=== PATIENT | female | born 1985 | race Caucasian/White ===

== ENCOUNTER 2019-06-24 16:04 | Outpatient (CLI) | payer OTHER, SELFPAY ==
--- NOTE | 2019-06-24 | US_ITS ---
WS: [id number] ULTRASOUND OB COMPLETE TECHNIQUE: Complete ultrasound. CLINICAL INFORMATION: SUPERVISION OF NORMAL IN MULTIGRAVIDA IN SECOND TR COMPARISON: None. FINDINGS: Cervix measures 4.0 cm Single interuterine gestation is identified with breech presentation. Placenta is posterior. Placenta grade 0. Normal amniotic fluid volume. cardiac activity: 133 BPM. AGA: 20 weeks 1 day CHARLIE by ultrasound: Estimated weight: 12 ounces BDP: 4.6 cm = 20w0d HC: 17.7 cm = 20w1d AC: 15.1 cm = 20w2d FEMUR LENGTH: 3.2 cm = 20w2d Anatomic survey: Anatomic survey is normal. Normal stomach. Kidneys and bladder are normal. Normal 3 vessel cord. Norm al 3 vessel cord insertion. Normal 4 chamber heart. Normal spine. Intracranial contents are normal. N ormal posterior fossa and cisterna magna. US/US OB >= 14 weeks fetus [id number] IMPRESSION: 1. Single intrauterine with visualized cardiac activity. AGA 20 week s 1 day with CHARLIE November 10, 2019. 2. Placenta is posterior No evidence of abruption or previa. 3. anatomic survey is normal. 4. Normal amniotic fluid volume.
== END 2019-06-24 16:05 | disposition home or self-care (01) ==
LOC: RADOUTREAD 06-25 11:46
PROVIDERS: Family Provider Family Medicine; Visit Provider Family Medicine
DX: Z34.82 Encounter for supervision of other normal pregnancy, second trimester (principal)

== ENCOUNTER 2019-10-28 20:19 | Inpatient (IN) | payer OTHER, MEDICAID, SELFPAY ==
[2019-10-28] VITALS (19 sets, daily range): BP systolic 0–144; BP diastolic 0–78; PULSE 75–101; RESP 18; TEMP 36.7–36.9; BMI 24.7
[2019-10-28 20:35] LABS: Basophils # 0.1 10^3/uL (0.0-0.1); Basophils % 0.4 %; Eosinophils # 0.2 10^3/uL (0.0-0.8); Eosinophils % 1.3 %; Hematocrit 35.7 % (37.0-47.0); Hemoglobin 11.7 g/dL (11.5-15.3); Lymphocytes # 2.1 10^3/uL (0.8-4.8); Lymphocytes % 14.6 %; Mean Corpuscular HGB Conc 32.8 g/dL (30.0-36.0); Mean Corpuscular Hemoglobin 28.9 pg (28.0-34.0); Mean Corpuscular Volume 88.1 fL (81-99); Mean Platelet Volume 11.1 fL (7.4-10.4); Monocytes # 0.9 10^3/uL (0.2-0.9); Monocytes % 6.1 %; Neutrophils # 10.9 10^3/uL (1.8-7.7); Neutrophils % 76.9 %; Nucleated Red Blood Cells % 0 %; Platelet Count 298 10^3/cmm (130-400); Red Blood Count 4.05 10^6/uL (4.1-5.3); Red Cell Distribution Width 13.2 % (12.1-15.1); White Blood Count 14.2 10^3/uL (4.0-10.0)
[2019-10-28] MEDS: dextrose 5%-lactated ringers 1,000 ML 125 ML IV (21:20)
[2019-10-28] MEDS: oxytocin 30 UNIT/500 ML BAG 600 UNIT IV (21:20)
--- NOTE | 2019-10-28 21:40 | PM.DELIVERY ---
Delivery Note: Date of delivery: October 28, 2019 Pre-Delivery Course: The patient had routine care at [facility]. There were no complications during the . Maternal GBS negative Delivery: This is a 33-year-old at 38 weeks gestation who presented to labor and delivery in active labor. She was already 6 to 7 cm dilated with a bulging bag of water. Artificial rupture of membranes was performed with a copious amount of clear fluid. Shortly thereafter she had a normal spontaneous vaginal delivery of a viable male weight 3155 g 6 pounds 15 ounces. Rupture of membranes was less than 30 minutes prior to delivery. The was born over an intact perineum with bulb suction of the mouth and nares at delivery. The infant was placed on the mother's chest and the cord was clamped and cut. The placenta was delivered grossly intact and normal to inspection. There were no lacerations, just small hemostatic abrasions. Mother and were doing well after delivery EBL 150 mL A&P Assessment and plan (1) Normal vaginal delivery: Status: Acute Coding Level of Care Code Acute Accordion Tuner for Chg Fwd Diagnoses Normal vaginal delivery O80
[2019-10-28] MEDS: benzocaine-menthol 78 gm Canister 1 SPRAY TOPICAL (23:20)
[2019-10-28] MEDS: lanolin oint 7 gm 1 APPLIC TOPICAL (23:20)
--- NOTE | 2019-10-28 23:35 | PC.NURSE ---
Patient attempted to urinate at this time, unable to urinate, IV fluids still going and patient drinking fluids.
[2019-10-29] VITALS (11 sets, daily range): BP systolic 98–137; BP diastolic 63–76; PULSE 77–122; RESP 16–18; TEMP 36.6–36.8; O2SAT 96–99
[2019-10-29] MEDS: acetaminophen 325 mg Tablet 650 MG PO (00:39)
--- NOTE | 2019-10-29 01:13 | PC.NURSE ---
Patient ambulated to PP room at this time, no dizziness, lightheadedness.
[2019-10-29] MEDS: docusate sodium 100 mg Capsule PO (08:40)
[2019-10-29] MEDS: prenatal vitamin Capsule 1 CAP PO (08:40)
[2019-10-29 10:02] LABS: Hematocrit 32.1 % (37.0-47.0); Hemoglobin 10.5 g/dL (11.5-15.3); Mean Corpuscular HGB Conc 32.7 g/dL (30.0-36.0); Mean Corpuscular Hemoglobin 28.7 pg (28.0-34.0); Mean Corpuscular Volume 87.7 fL (81-99); Mean Platelet Volume 11.4 fL (7.4-10.4); Platelet Count 254 10^3/cmm (130-400); Red Blood Count 3.66 10^6/uL (4.1-5.3); Red Cell Distribution Width 13.3 % (12.1-15.1); White Blood Count 14.3 10^3/uL (4.0-10.0)
--- NOTE | 2019-10-29 16:58 | P.DS_ITS ---
Discharge Providers TUFTING SUPERVISOR Date of Admission: 10/28/19 20:19 Date of Discharge: 10/29/19 Attending Provider at Admission: Sahgufta Bustos MD Attending Provider at Discharge: Shagufta Bustos MD Diagnoses at Discharge Discharge Diagnosis (1) Normal vaginal delivery: Status: Acute Reason for Visit Reason for Visit: Reason For Visit: abd pain Hospital Course Discharge Summary: This is a 34-year-old G5, P4 who was admitted in active labor. She had an uncomplicated normal spontaneous vaginal delivery of a viable male . On day #1 she was ambulating, tolerating a regular diet, had decreased vaginal bleeding and was requesting discharge home Information Peripartum Data: Delivery Method: Vaginal Physical Exam Const: COMMON NORMALS: no acute distress and healthy appearing Eye: COMMON NORMALS: Equal, round and reactive pupils present and EOMs intact bilaterally PUPIL: Yes Equal, round and reactive pupils present GI: COMMON NORMALS: Soft to palpation, non-tender, No hepatosplenomegaly present and no masses PALPATION: Yes Soft to palpation and Yes No hepatosplenomegaly present Extremity: GENERAL: No calf tenderness and No edema Discharge Data Data Completed and Pending: Labs from last 24 hours 10/29/19 10/28/19 09:38 20:20 WBC 14.3 H 14.2 H RBC 3.66 L 4.05 L Hgb 10.5 L 11.7 Hct 32.1 L 35.7 L MCV 87.7 88.1 MCH 28.7 28.9 MCHC 32.7 32.8 RDW 13.3 13.2 Plt Count 254 298 MPV 11.4 H 11.1 H Neut % (Auto) 76.9 Lymph % (Auto) 14.6 [place] % (Auto) 6.1 Eos % (Auto) 1.3 Baso % (Auto) 0.4 Neut # (Auto) 10.9 H Lymph # (Auto) 2.1 [place] # (Auto) 0.9 Eos # (Auto) 0.2 Baso # (Auto) 0.1 Nucleated RBC % (a uto) 0 Nucleated RBCs # 0.0 Vitals: Last Vital Signs Temp 98.1 F 10/29/19 14:30 Pulse 87 10/29/19 14:30 Resp 16 10/29/19 14:30 BP 104/67 10/29/19 14:30 Pulse Ox 97 10/29/19 14:30 Discharge Plan Discharge Patient Disposition: Home, Self-Care Condition: Stable Prescriptions: Continued 28-800 mg-mcg Tablet See Rx Instructions .ROUTE .COMPLEX RF: 0 Discharge Orders: Discharge Order (Routine); Ordered 10/29/19 Ordered By: Shagufta Bustos Referrals: Shagufta Bustos MD [Physician] - 1 month Discharge Diet: Usual diet Discharge Activity: Limit activity as instructed Discharge Attestations TUFTING SUPERVISOR Time Spent in Discharge Care*: less than 30 min Coding Level of Care Code Acute Contract Recruiter for Chg Fwd Diagnoses Normal vaginal delivery O80
== END 2019-10-29 22:28 | disposition home or self-care (01) | DRG 807 ==
LOC: OBGYN 10-29 08:23 → OPOB 10-29 08:23
PROVIDERS: Admitting Provider Family Medicine; Visit Provider Family Medicine
DX: O80 Encounter for full-term uncomplicated delivery (principal); Z37.0 Single live birth; Z3A.38 38 weeks gestation of pregnancy
CPT/HCPCS: 12345; 36415; 59025; 59409; 85025; 85027; 99211

== ENCOUNTER 2025-01-01 07:53 | Outpatient (CLI) | payer OTHER, SELFPAY ==
--- NOTE | 2025-01-01 08:06 | MM_ITS ---
WS: [id number] SCREENING DIGITAL TOMOSYNTHESIS MAMMOGRAM WITH CAD HISTORY: Screening. COMPARISON: None available. Bilateral CC and MLO with tomosynthesis views submitted. Synthetic mammography reviewed. Computer aided detection analyzed. Breast composition: The breasts are extremely dense, which lowers the sensitivity of mammography. No suspicious masses, microcalcifications or architectural distortion. MM/MM scr BI tomosynthesis [id number] IMPRESSION: BI-RADS: 1 - Negative FOLLOW UP: 1 Year Follow-up
== END 2025-01-01 07:54 | disposition home or self-care (01) ==
PROVIDERS: PCP Family Medicine; Visit Provider Family Medicine
DX: Z12.31 Encounter for screening mammogram for malignant neoplasm of breast (principal); R92.313 Mammographic fatty tissue density, bilateral breasts
CPT/HCPCS: 77063; 77067